=== PATIENT | female | born 1935 | race Caucasian/White ===

== ENCOUNTER 2017-05-26 19:45 | Emergency (ER) | payer MEDICARE, OTHER ==
[~2017-05-26] VITALS: Ht 157.5 cm; Wt 67.3 kg
[~2017-05-26 19:45] MED LIST: ACCUPRIL10 M1 PO; DITROPAN XL10 MG PO; LIORESAL 1010 MG/TAB PO; NEXIUM 40MG40 MG PO; ZOCOR 20MG20 MG PO
[2017-05-26 19:49] VITALS: BP 173/82; TEMP 97.9
[2017-05-26] MEDS ORDERED: NORVASC 5MG5 MG/TAB PO (22:08)
[2017-05-26] MEDS ORDERED: CIPRO 500MG TA500 MG PO (22:21)
[2017-05-26 22:52] VITALS: PULSE 87
== END 2017-05-26 22:54 | disposition home or self-care (01) ==
LOC: COL.ER 19:45
DX: S91.114A Laceration without foreign body of right lesser toe(s) without damage to nail, initial encounter (principal); I10 Essential (primary) hypertension; K21.9 Gastro-esophageal reflux disease without esophagitis; E78.5 Hyperlipidemia, unspecified; G35 Multiple sclerosis; Z23 Encounter for immunization; W26.8XXA Contact with other sharp object(s), not elsewhere classified, initial encounter; Y92.009 Unspecified place in unspecified non-institutional (private) residence as the place of occurrence of the external cause

== ENCOUNTER 2017-06-04 16:45 | Emergency (ER) | payer MEDICARE, OTHER ==
[~2017-06-04 16:45] MED LIST changes: +CIPRO 500MG TA500 MG PO; +NORVASC 5MG5 MG/TAB PO
[2017-06-04 16:50] VITALS: BP 182/79; PULSE 80; TEMP 98.4
[2017-06-05] MEDS ORDERED: GRALISE300 MG (00:36)
== END 2017-06-04 16:57 | disposition home or self-care (01) ==
LOC: COL.ER 16:45
DX: S91.114D Laceration without foreign body of right lesser toe(s) without damage to nail, subsequent encounter (principal)

== ENCOUNTER 2017-06-04 18:31 | Observation (INO) | payer MEDICARE, OTHER ==
[~2017-06-04] VITALS: Ht 154.9 cm; Wt 77.3 kg
[2017-06-04 19:08] LABS: BASO # 0.1 (0.0-0.2); BASO % 0.6 % (0.0-2.0); EOS # 0.4 (0.0-0.7); EOS % 2.6 % (0-4.0); GRAN % 65.6 % (42.2-75.2); HEMATOCRIT 42.1 % (37.0-47.0); HEMOGLOBIN 13.9 g/dl (12.5-16.0); LYMPH # 3.1 (1.2-3.4); LYMPH % 22.6 % (20.0-51.0); MEAN CELL VOLUME 88 fl (80.0-100.0); MEAN CORPUSCULAR HEMOGLOBIN 29 pg (27.0-31.0); MEAN CORPUSCULAR HGB CONC 33 g/dl (33.0-37.0); MEAN PLATELET VOLUME 10.2 fl (7.4-10.4); MONO # 1.1 (0.1-0.6); MONO % 8.3 % (1.7-9.3); PLATELET COUNT 238 K/mm3 (130-400); RED BLOOD COUNT 4.78 M/mm3 (4.10-5.30); REDCELL DISTRIBUTION WIDTH-CV 14.5 % (11.5-14.5)
[2017-06-04 19:19] LABS: ALANINE AMINOTRANSFERASE 27 U/L (9-52); ALBUMIN 4.6 gm/dL (3.5-5.0); ALKALINE PHOSPHATASE 86 U/L (50-136); ANION GAP 13 mmol/L (7-16); AST,SGOT 33 U/L (15-37); BILIRUBIN,TOTAL 0.8 mg/dL (0.0-1.0); BLOOD UREA NITROGEN 21 mg/dL (7-17); CALCIUM 9.6 mg/dL (8.4-10.2); CARBON DIOXIDE 22 mmol/L (22-30); CHLORIDE 102 mmol/L (98-107); CREATININE, serum 0.74 mg/dL (0.52-1.25); GLUCOSE 95 mg/dL (74-106); POTASSIUM 4.1 mmol/L (3.4-5.0); SODIUM 137 mmol/L (137-145)
[2017-06-04 19:31] LABS: TROPONIN-I < 0.012 ng/mL (0.000-0.034)
[2017-06-05] MEDS ORDERED: GRALISE300 MG (00:36)
[2017-06-05 01:34] VITALS: BP 154/91; PULSE 81; TEMP 97.7
[2017-06-05 04:00] VITALS: BP 154/66; PULSE 92; TEMP 97.7
[2017-06-05 07:01] LABS: BASO # 0.1 (0.0-0.2); BASO % 0.6 % (0.0-2.0); EOS # 0.3 (0.0-0.7); EOS % 2.7 % (0-4.0); GRAN # 7.7 (1.4-6.5); GRAN % 66.8 % (42.2-75.2); HEMATOCRIT 40.2 % (37.0-47.0); HEMOGLOBIN 13.2 g/dl (12.5-16.0); LYMPH # 2.4 (1.2-3.4); LYMPH % 20.8 % (20.0-51.0); MEAN CELL VOLUME 88 fl (80.0-100.0); MEAN CORPUSCULAR HEMOGLOBIN 29 pg (27.0-31.0); MEAN CORPUSCULAR HGB CONC 33 g/dl (33.0-37.0); MEAN PLATELET VOLUME 9.9 fl (7.4-10.4); MONO % 8.8 % (1.7-9.3); PLATELET COUNT 241 K/mm3 (130-400); RED BLOOD COUNT 4.55 M/mm3 (4.10-5.30); REDCELL DISTRIBUTION WIDTH-CV 14.5 % (11.5-14.5)
[2017-06-05 07:19] LABS: ANION GAP 10 mmol/L (7-16); BLOOD UREA NITROGEN 16 mg/dL (7-17); CALCIUM 8.9 mg/dL (8.4-10.2); CARBON DIOXIDE 27 mmol/L (22-30); CHLORIDE 103 mmol/L (98-107); CHOLESTEROL 149 mg/dL (120-200); CHOLESTEROL RISK RATIO 3.4; CREATININE, serum 0.69 mg/dL (0.52-1.25); GLUCOSE 90 mg/dL (74-106); HDL CHOLESTEROL 43 mg/dL; LDL CHOLESTEROL 91 mg/dL; POTASSIUM 3.8 mmol/L (3.4-5.0); SODIUM 140 mmol/L (137-145); TRIGLYCERIDE 77 mg/dL
[2017-06-05 07:32] LABS: TROPONIN-I < 0.012 ng/mL (0.000-0.034)
[2017-06-05 10:00] VITALS: BP 145/81; PULSE 79; TEMP 97.5
[2017-06-05 14:48] VITALS: BP 145/71; PULSE 76; TEMP 98
== END 2017-06-05 15:23 | disposition home or self-care (01) ==
LOC: COL.ER 18:31 → MEDICAL 20:52 → SURG 20:53 → EDBEDREQ 23:08 → SURG 06-05 15:23
PROVIDERS: Emergency Medicine; Nurse Practitioner
DX: R07.9 Chest pain, unspecified (principal); I10 Essential (primary) hypertension; E78.5 Hyperlipidemia, unspecified; B02.29 Other postherpetic nervous system involvement; Z80.1 Family history of malignant neoplasm of trachea, bronchus and lung; Z82.3 Family history of stroke
CPT/HCPCS: J1650; J7030

== ENCOUNTER → 2017-07-06 | Outpatient (CLI) | payer MEDICARE, OTHER ==
[~2017-07-06] VITALS: Ht 154.9 cm; Wt 68.6 kg
[~2017-07-06] MED LIST changes: +ASPIRIN E.C. 8181 MG PO; +GRALISE300 MG
[2017-07-06 10:35] VITALS: BP 163/94; PULSE 87
[2017-07-06 11:55] VITALS: BP 155/87; PULSE 83
[2017-07-06 12:00] VITALS: BP 124/64; PULSE 104
[2017-07-06 12:01] VITALS: BP 128/67; PULSE 106
[2017-07-06 12:02] VITALS: BP 130/71; PULSE 102
[2017-07-06 12:03] VITALS: BP 135/74; PULSE 102
== END ==
LOC: COL.CARD 10:03
DX: R07.9 Chest pain, unspecified (principal)
CPT/HCPCS: A9502; J2785